=== PATIENT | male | born 1955 | race Caucasian/White ===

== ENCOUNTER 2018-09-30 01:15 | Observation (INO) | payer OTHER, SELFPAY ==
[2018-09-30] VITALS (12 sets, daily range): BP systolic 129–145; BP diastolic 63–84; PULSE 62–88; RESP 15–18; TEMP 36.6–36.8; O2SAT 97–99; BMI 28.0
--- NOTE | 2018-09-30 03:45 | EKG12_ITS ---
Test Reason : ADMIT Blood Pressure : / mmHG Vent. Rate : 075 BPM Atrial Rate : 075 BPM P-R Int : 148 ms QRS Dur : 088 ms QT Int : 386 ms P-R-T Axes : 049 042 035 degrees QTc Int : 431 ms Normal sinus rhythm Normal ECG When compared with ECG of 18-MAR-2014 07:50, No significant change was found Confirmed by HUMZA WHITMORE, KAY ([id number]), editor in chief newspaper SOFIA ARCINIEGA ([id number]) on 10/03/2018 2:13:17 PM Referred By: Confirmed By:KAY CHING MD
--- NOTE | 2018-09-30 03:46 | PCM.HP.STD ---
History of Present Illness Date of Admission: 09/30/18 Chief Complaint: syncope The patient is a 63 year old M with past medical history significant for meningioma. He was admitted as a direct admit from ED on 09/30/2018 with a complaint of syncopal episode. Patient was at a green party in the early hours of this morning and says she started feeling funny. He therefore went outside for some fresh air and went to the bathroom. He was subsequently found on the floor. He does not know how long he was out for but just remembers that he felt weak and lightheaded and remembers falling in his head hitting the wall. thinks he was out for a few minutes as she was wondering where he was and so decided to go to look for him and he was found in the bathroom having be helped to sit up by a bystander. Patient had vomited in the process but had no urinary or fecal incontinence and there were no reported seizure-like movements noted. There was also no tongue biting. He is never had such incidents in the past. Of note, patient donated blood yesterday and sees he donated double his usual portion as he was told. [facility] was [facility] normal limits and CBC showed hemoglobin of 10.7. Patient states his baseline is around 14. CT of the brain done was negative. EKG showed no acute ST changes. Patient requested transfer to [facility] and lives in [place]. He is to be admitted to be managed for syncope. [] Past Medical History Allergies No Known Allergies Allergy (Verified 03/18/14 08:47) Home Medications: Ambulatory Orders Medication Instructions Recorded Loratadine [Claritin] 10 mg PO DAILY 03/18/14 Hydrocodone/Acetaminophen [Vicodin 1 - 2 tablet PO Q6H PRN PRN #20 03/25/14 5-300 mg Tablet] tablet Surgical History: - - rotator cuff surgery Psychiatric History: No pertinent psych hx Lives: Spouse/ Significant Other Smoking Status: Never smoker Alcohol: Occasional - *Family History Paternal History Items: Heart Disease Maternal History Items: No pertinent history Review of Systems Constitutional: Denies: Chills, Fever, Weight Change Eyes: Denies: Blurred vision HEENT: Denies: Head Aches, Sinus Congestion, Sinus Drainage Cardiovascular: Denies: Chest Pain, Palpitations Respiratory: Denies: Cough, Shortness of Breath, Shortness of breath at rest, Sputum production Gastrointestinal: Denies: Abdominal Pain, Nausea, Vomiting Genitourinary: Denies: Dysuria Musculoskeletal: Denies: Joint Pain, Joint Tenderness Skin: Denies: Rash, Wounds Neurological: Denies: Numbness, Tingling, Focal weakness Psychiatric: Denies: Anxiety, Depression, Homicidal Ideations, Suicidal Ideations Hematologic/ Lymphatic: Denies: Easy Bruising, Easy Bleeding VTE Information - Inpt Only VTE Present on Admission: No VTE Pharm Prophylaxis ordered?: Yes - Physical Exam General: Alert, Oriented x3, Cooperative, No apparent distress HEENT: Atraumatic, PERRLA, EOMI, Normocephalic Oral: Moist Mucosa Neck: Supple, No JVD, Negative Carotid Bruits Lungs: Clear to auscultation, Normal air movement, No rhonchi, No wheeze, No rales Cardiovascular: Regular rate, Regular Rhythm, Normal S1, Normal S2, No murmurs Abdomen: Bowel Sounds Present, Soft, Non Tender, Non-Distended, No Hepato-splenomegaly Extremities: No clubbing, No cyanosis, No edema, Capillary Refill Less than 3 Seconds Skin: No rashes, - - small abrasion on the right forehead, due to fall Musculoskeletal: No Tenderness to Palpation of Joints or Extremities Lymphatic: No Cervical, Supraclavicular, or Inguinal Adenopathy Neurological: Cranial nerves II-XII grossly intact, Neuro grossly intact, Motor Exam 5/5 strength throughout Psych/Mental Status: Normal Affect, Appropriate, Alert and oriented to time, place, person, mood and affect Weight: 173 lb 11.588 oz Body Mass Index (BMI) 28.0 Assessment/Plan 63 y/o admitted with a complaint of syncope 1. Syncope, likely vasovagal this was likely induced by significant blood donation which happened yesterday and patient being on his feet all of today CT head was negative- done in [place] EKG done in [place] shows no acute ST changes admit to PCU with telemetry check orthostatics hydrate with IVF 2.Anemia likely due to acute blood loss from blood donation Hb is 10.7; was ~ 14 prior to donation of blood, according to patient will monitor DVT prophylaxis: lovenox Code Visit OBSV E&M: [id number] Initial observation care L2
--- NOTE | 2018-09-30 03:52 | HP.PCM_ITS ---
History of Present Illness Date of Admission: 09/30/18 Chief Complaint: syncope The patient is a 63 year old M with past medical history significant for meningioma. He was admitted as a direct admit from ED on 09/30/2018 with a complaint of syncopal episode. Patient was at a constitution party in the early hours of this morning and says she started feeling funny. He therefore went outside for some fresh air and went to the bathroom. He was subsequently found on the floor. He does not know how long he was out for but just remembers that he felt weak and lightheaded and remembers falling in his head hitting the wall. thinks he was out for a few minutes as she was wondering where he was and so decided to go to look for him and he was found in the bathroom having be helped to sit up by a bystander. Patient had vomited in the process but had no urinary or fecal incontinence and there were no reported seizure-like movements noted. There was also no tongue biting. He is never had such incidents in the past. Of note, patient donated blood yesterday and sees he donated double his usual portion as he was told. [facility] was [facility] normal limits and CBC showed hemoglobin of 10.7. Patient states his baseline is around 14. CT of the brain done was negative. EKG showed no acute ST changes. Patient requested transfer to [facility] and lives in [place]. He is to be admitted to be managed for syncope. [] Past Medical History Allergies No Known Allergies Allergy (Verified 03/18/14 08:47) Home Medications: Ambulatory Orders Medication Instructions Recorded Loratadine [Claritin] 10 mg PO DAILY 03/18/14 Hydrocodone/Acetaminophen [Vicodin 1 - 2 tablet PO Q6H PRN PRN #20 03/25/14 5-300 mg Tablet] tablet Surgical History: - - rotator cuff surgery Psychiatric History: No pertinent psych hx Lives: Spouse/ Significant Other Smoking Status: Never smoker Alcohol: Occasional - *Family History Paternal History Items: Heart Disease Maternal History Items: No pertinent history Review of Systems Constitutional: Denies: Chills, Fever, Weight Change Eyes: Denies: Blurred vision HEENT: Denies: Head Aches, Sinus Congestion, Sinus Drainage Cardiovascular: Denies: Chest Pain, Palpitations Respiratory: Denies: Cough, Shortness of Breath, Shortness of breath at rest, Sputum production Gastrointestinal: Denies: Abdominal Pain, Nausea, Vomiting Genitourinary: Denies: Dysuria Musculoskeletal: Denies: Joint Pain, Joint Tenderness Skin: Denies: Rash, Wounds Neurological: Denies: Numbness, Tingling, Focal weakness Psychiatric: Denies: Anxiety, Depression, Homicidal Ideations, Suicidal Ideations Hematologic/ Lymphatic: Denies: Easy Bruising, Easy Bleeding VTE Information - Inpt Only VTE Present on Admission: No VTE Pharm Prophylaxis ordered?: Yes - Physical Exam General: Alert, Oriented x3, Cooperative, No apparent distress HEENT: Atraumatic, PERRLA, EOMI, Normocephalic Oral: Moist Mucosa Neck: Supple, No JVD, Negative Carotid Bruits Lungs: Clear to auscultation, Normal air movement, No rhonchi, No wheeze, No rales Cardiovascular: Regular rate, Regular Rhythm, Normal S1, Normal S2, No murmurs Abdomen: Bowel Sounds Present, Soft, Non Tender, Non-Distended, No Hepato-splenomegaly Extremities: No clubbing, No cyanosis, No edema, Capillary Refill Less than 3 Seconds Skin: No rashes, - - small abrasion on the right forehead, due to fall Musculoskeletal: No Tenderness to Palpation of Joints or Extremities Lymphatic: No Cervical, Supraclavicular, or Inguinal Adenopathy Neurological: Cranial nerves II-XII grossly intact, Neuro grossly intact, Motor Exam 5/5 strength throughout Psych/Mental Status: Normal Affect, Appropriate, Alert and oriented to time, place, person, mood and affect Weight: 173 lb 11.588 oz Body Mass Index (BMI) 28.0 Assessment/Plan 63 y/o admitted with a complaint of syncope 1. Syncope, likely vasovagal * this was likely induced by significant blood donation which happened yesterday and patient being on his feet all of today * CT head was negative- done in [place] * EKG done in [place] shows no acute ST changes * admit to PCU with telemetry * check orthostatics * hydrate with IVF * 2.Anemia * likely due to acute blood loss from blood donation * Hb is 10.7; was ~ 14 prior to donation of blood, according to patient * will monitor * DVT prophylaxis: lovenox Code Visit OBSV E&M: [id number] Initial observation care L2
[2018-09-30] MEDS: 0.9% Normal Saline 1,000 ML 100 ML IV (04:17)
[2018-09-30 04:28] LABS: Absolute Lymphocyte Count 1.14 X10^3/ul (0.83-4.51); Basophil# 0.01 X10^3/uL; Basophil% 0.1 % (0-1); Eosinophil# 0.04 X10^3/uL; Eosinophils% 0.5 % (0-5); Hematocrit 33.6 % (40-54); Hemoglobin 10.8 g/dl (13.0-16.5); Lymphocyte # 1.14 X10^3/ul (4.0); Lymphocyte % 13.1 % (19-41); Mean Corp Hgb Conc 32.1 g/gl (32-36); Mean Corpuscular Hgb 28.4 pg (27.0-32.0); Mean Corpuscular Volume 88.4 fL (80-94); Mean Platelet Vol. 9.8 fl (6.2-12.0); Monocyte# 0.51 X10^3/uL; Monocyte% 5.9 % (0-10); Neutrophil # 6.98 X10^3/uL (2.7-7.7); Neutrophil % 80.2 % (47-70); Platelet Count 250 K/mm3 (150-450); RBC Distribution Width CV 12.8 % (11.6-14.6); White Blood Count 8.7 K/mm3 (4.4-11.0)
[2018-09-30 04:37] LABS: POSITIVE COUNT NO; POSITIVE DIFFERENTIAL NO; POSITIVE MORPHOLOGY NO
[2018-09-30 04:46] LABS: Anion Gap 7 (5-15); BUN 15 mg/dL (7-18); BUN/Creat Ratio 14.3 RATIO (10-20); Calcium,Total 8.6 mg/dL (8.5-10.1); Chloride 109 mmol/L (98-107); Creatinine, Serum 1.05 mg/dL (0.70-1.30); EST Glomerular Filtration Rate 76 mL/min (>60); Est Glom Filt Rate - Afr Amer 92 mL/min (>60); Estimated Creatinine Clearance 66.67 ml/min; Glucose 108 mg/dL (74-106); Potassium 4.3 mmol/L (3.5-5.1); Sodium Level 143 mmol/L (136-145)
--- NOTE | 2018-09-30 09:46 | ECHOD_ITS ---
Reason For Study: Syncope Procedure This was a 2D Doppler, Color Flow transthoracic echocardiogram. Exam performed portable in patient room. Left Ventricle Normal LV size. Left ventricular systolic function is normal. The estimated ejection fraction is 65 %. Normal diastology for age. No regional wall motion abnormalities noted. Right Ventricle Normal RV size. Normal systolic function. Atria Normal left atrium. Normal right atrium. L to R shunt. Patent foramen ovale. Mitral Valve Normal mitral valve. Tricuspid Valve Normal tricuspid valve. Aortic Valve Trisinus/trileaflet aortic valve. Pulmonic Valve Normal pulmonic valve. Great Vessels Normal aortic root. The pulmonary artery is normal size. Normal inferior vena cava. Pericardium/Pleural No pericardial effusion. Medication Performed a rapid injection of agitated mix of 9 cc saline and 1cc air to assess for atrial septal defect. MMode/2D Measurements & Calculations LVIDd: 5.2 cm IVSd: 1.1 cm LA dimension: 3.4 cm LVIDs: 3.0 cm LVPWd: 0.99 cm RVDd: 3.3 cm FS: 41.4 % LAV(MOD-bp): 56.5 ml LA A4 area: 18.4 cm2 RA A4 area: 14.9 cm2 LAV(MOD-bp) Indexed: 30.0 ml/m2 LAV(MOD-sp2): 59.7 ml LAV(MOD-sp4): 51.4 ml Time Measurements MV dec time: 0.19 sec Doppler Measurements & Calculations MV E max gab: 84.2 cm/sec Lat Peak E' Gab: 14.1 cm/sec Med Peak E' Gab: 12.1 cm/sec MV A max gab: 77.0 cm/sec E/E' lat: 6.0 E/E' med: 6.9 MV E/A: 1.1 MV V2 max: 95.3 cm/sec MV P1/2t max gab: 95.3 cm/sec Ao V2 max: 133.9 cm/sec MV max P.6 mmHg MV P1/2t: 54.5 msec Ao max P.2 mmHg MV V2 mean: 57.6 cm/sec MV dec slope: 512.8 cm/sec2 Ao V2 mean: 92.3 cm/sec MV mean P.5 mmHg Ao mean P.8 mmHg MV V2 VTI: 24.2 cm MVA(P1/2t): 4.0 cm2 Ao V2 VTI: 26.3 cm LV V1 max: 109.8 cm/sec PA V2 max: 157.9 cm/sec LV V1 max P.8 mmHg LV V1 mean P.4 mmHg LV V1 mean: 71.1 cm/sec LV V1 VTI: 23.9 cm Interpretation Summary Normal LV size. Left ventricular systolic function is normal. The estimated ejection fraction is 65 %. Normal diastology for age. L to R shunt Patent foramen ovale. Structurally normal valves. Ordering Physician: DEMARIO Duarte Referring Physician: Anel Ronquillo Performed By: Fito Gill RCS
--- NOTE | 2018-09-30 12:47 | PCM.PROGNOTE ---
Subjective: Patient seen and examined. Denies further dizziness/lightheadedness/syncope. Denies history of prior episodes of syncope. Denies chest pain, shortness of breath, palpitations. - Physical Exam General: Alert, Oriented x3, Cooperative HEENT: Atraumatic, PERRLA, EOMI, Normocephalic Neck: Supple, No JVD, Negative Carotid Bruits Lungs: Clear to auscultation, Normal air movement Cardiovascular: Regular rate, Regular Rhythm, Normal S1, Normal S2, No murmurs Abdomen: Bowel Sounds Present, Soft, Non Tender, Non-Distended Extremities: No clubbing, No cyanosis, No edema, Capillary Refill Less than 3 Seconds Skin: No rashes, No breakdown Musculoskeletal: No Tenderness to Palpation of Joints or Extremities Neurological: Cranial nerves II-XII grossly intact, Neuro grossly intact Psych/Mental Status: Normal Affect, Appropriate Vital Signs Temp Pulse Resp BP Pulse Ox 97.8 F 62 18 129/82 H 98 09/30/18 10:07 09/30/18 11:00 09/30/18 10:07 09/30/18 10:07 09/30/18 10:07 Oxygen Delivery Method Room Air Weight: 173 lb 11.588 oz Body Mass Index (BMI) 28.0 Orthostatic Vital Signs Start: 09/30/18 04:00 Freq: q24h Status: Active Protocol: Activity Type Activity Date Activity User E-Sign Co-Sign Detail Recorded Client Recorded Date Recorded By Document 09/30/18 04:00 [facility] [id number] 09/30/18 04:02 [facility] 09/30/18 04:00 Orthostatic Vitals Standing -Blood Pressure (90/60-120/80) 131/77 H -Extremity Use Right Arm -Pulse Rate (60-100) 88 Sitting -Blood Pressure (90/60-120/80) 131/74 H -Extremity Use Right Arm -Pulse Rate (60-100) 72 Lying -Blood Pressure (90/60-120/80) 131/68 H -Extremity Use Right Arm -Pulse Rate (60-100) 76 Intake and Output for Last 24 Hours 09/28/18 09/29/18 09/30/18 23:59 23:59 23:59 Intake Total 1624 / 1624 Balance 1624 / 1624 Laboratory Tests Past 24 Hrs 09/30/18 09/30/18 04:05 04:05 WBC 8.7 RBC 3.80 L Hgb 10.8 L Hct 33.6 L MCV 88.4 MCH 28.4 MCHC 32.1 RDW 12.8 RDW Differential 41.0 Plt Count 250 MPV 9.8 Immature Gran % (Auto) 0.200 Neut % (Auto) 80.2 H Lymph % (Auto) 13.1 L [place] % (Auto) 5.9 Eos % (Auto) 0.5 Baso % (Auto) 0.1 Absolute Neuts (auto) 7.0 Absolute Lymphs (auto) 1.14 Total Counted Not Reportable Sodium 143 Potassium 4.3 Chloride 109 H Carbon Dioxide 27.0 Anion Gap 7 BUN 15 Creatinine 1.05 Estim Creat Clear Calc 66.67 Est GFR (MDRD) Af Amer 92 Est GFR (MDRD) Non-Af 76 BUN/Creatinine Ratio 14.3 Glucose 108 H Calcium 8.6 Medical Necessity - Tobacco Use Smoking Status: Never smoker Assessment/Plan 1. Syncope-brain CT at outside facility negative. EKG without ST-T changes. Troponin negative. Orthostatic vitals negative. Obtain echocardiogram. Monitor telemetry. 2. Family history of heart disease-patient reports his father had SC/CABG-patient states his most recent stress test was over 3 years ago. Recommend outpatient stress test to be arranged by primary care physician. DVT prophylaxis-Lovenox subcu. This patient was seen by DEMARIO Duarte under the supervision of Dr. Gallardo.
--- NOTE | 2018-09-30 12:54 | PN_ITS ---
Subjective: Patient seen and examined. Denies further dizziness/lightheadedness/syncope. Denies history of prior episodes of syncope. Denies chest pain, shortness of breath, palpitations. - Physical Exam General: Alert, Oriented x3, Cooperative HEENT: Atraumatic, PERRLA, EOMI, Normocephalic Neck: Supple, No JVD, Negative Carotid Bruits Lungs: Clear to auscultation, Normal air movement Cardiovascular: Regular rate, Regular Rhythm, Normal S1, Normal S2, No murmurs Abdomen: Bowel Sounds Present, Soft, Non Tender, Non-Distended Extremities: No clubbing, No cyanosis, No edema, Capillary Refill Less than 3 Seconds Skin: No rashes, No breakdown Musculoskeletal: No Tenderness to Palpation of Joints or Extremities Neurological: Cranial nerves II-XII grossly intact, Neuro grossly intact Psych/Mental Status: Normal Affect, Appropriate Vital Signs Temp Pulse Resp BP Pulse Ox 97.8 F 62 18 129/82 H 98 09/30/18 10:07 09/30/18 11:00 09/30/18 10:07 09/30/18 10:07 09/30/18 10:07 Oxygen Delivery Method Room Air Weight: 173 lb 11.588 oz Body Mass Index (BMI) 28.0 Orthostatic Vital Signs Start: 09/30/18 04:00 Freq: q24h Status: Active Protocol: Activity Type Activity Date Activity User E-Sign Co-Sign Detail Recorded Client Recorded Date Recorded By Document 09/30/18 04:00 [facility] [id number] 09/30/18 04:02 [facility] 09/30/18 04:00 Orthostatic Vitals Standing -Blood Pressure (90/60-120/80) 131/77 H -Extremity Use Right Arm -Pulse Rate (60-100) 88 Sitting -Blood Pressure (90/60-120/80) 131/74 H -Extremity Use Right Arm -Pulse Rate (60-100) 72 Lying -Blood Pressure (90/60-120/80) 131/68 H -Extremity Use Right Arm -Pulse Rate (60-100) 76 Intake and Output for Last 24 Hours 09/28/18 09/29/18 09/30/18 23:59 23:59 23:59 Intake Total 1624 / 1624 Balance 1624 / 1624 Laboratory Tests Past 24 Hrs 09/30/18 09/30/18 04:05 04:05 WBC 8.7 RBC 3.80 L Hgb 10.8 L Hct 33.6 L MCV 88.4 MCH 28.4 MCHC 32.1 RDW 12.8 RDW Differential 41.0 Plt Count 250 MPV 9.8 Immature Gran % (Auto) 0.200 Neut % (Auto) 80.2 H Lymph % (Auto) 13.1 L [place] % (Auto) 5.9 Eos % (Auto) 0.5 Baso % (Auto) 0.1 Absolute Neuts (auto) 7.0 Absolute Lymphs (auto) 1.14 Total Counted Not Reportable Sodium 143 Potassium 4.3 Chloride 109 H Carbon Dioxide 27.0 Anion Gap 7 BUN 15 Creatinine 1.05 Estim Creat Clear Calc 66.67 Est GFR (MDRD) Af Amer 92 Est GFR (MDRD) Non-Af 76 BUN/Creatinine Ratio 14.3 Glucose 108 H Calcium 8.6 Medical Necessity - Tobacco Use Smoking Status: Never smoker Assessment/Plan 1. Syncope-brain CT at outside facility negative. EKG without ST-T changes. Troponin negative. Orthostatic vitals negative. Obtain echocardiogram. Monitor telemetry. 2. Family history of heart disease-patient reports his father had CT/CABG- patient states his most recent stress test was over 3 years ago. Recommend outpatient stress test to be arranged by primary care physician. DVT prophylaxis-Lovenox subcu. This patient was seen by DEMARIO Duarte under the supervision of Dr. Gallardo.
[2018-10-01] VITALS (7 sets, daily range): BP systolic 116–134; BP diastolic 78–87; PULSE 57–83; RESP 17–18; TEMP 36.4–36.6; O2SAT 96–97
--- NOTE | 2018-10-01 11:27 | DCINST_ITS ---
You will use the following diet at home:: No restrictions Discharge Activity: Return to Normal Activity Call your doctor if you observe: Shortness of breath, Dizziness, Fainting spells, Chest pain Allergies/Adverse Reactions: Allergies No Known Allergies Allergy (Verified 03/18/14 08:47) Medications to take at Discharge Loratadine [Claritin] 10 mg PO DAILY 03/18/14 Test Results: Test results from this visit will be discussed in further detail at your follow- up appointment, if applicable. Please Follow Up With: Primary Care Provider When: 1 Week Proposed Discharge Date: 10/01/18
--- NOTE | 2018-10-01 12:15 | PHA.DC.MR ---
Pharmacy Service has performed discharge medication reconciliation for this patient. The patient's discharge medication list was reviewed for discrepancies and discrepancies were resolved. Home Medications Loratadine [Claritin] 10 mg PO DAILY 03/18/14
--- NOTE | 2018-10-01 14:30 | DS.PCM_ITS ---
<Samantha Tucker - Last Filed: 10/01/18 14:30> Discharge Date and Diagnosis - Problem List Patient Problems: Active and Suspected Problems Syncope (Acute) Date of Admission: 09/30/18 Date of Discharge: 10/01/18 - Primary Discharge Diagnosis 1. Syncope Hospital Course and Treatment Operations: None Procedures: 2-D Echocardiogram Summary of Care Provided: The patient is a 63 year old M due to syncope. He has a past medical history of meningioma. Patient donated double his usual blood donation day prior to syncopal event. He was noted to twice daily [employer] function and had 3 alcoholic beverages night of syncopal event. Brain CT at outside facility negative. EKG without ST-T changes. Troponin negative. Orthostatic vitals negative. Echocardiogram showed an EF of 65%, +PFO. Suspect syncope due to prior mentioned events. Baseline hemoglobin 13.8. Hemoglobin on admission 10.8. Patient denies further dizziness/syncope. Patient reports a significant family history of CAD with father having CABG in 50s. Recommended to patient discussion with PCP regarding outpatient routine stress test. General: Alert, Oriented x3, Cooperative HEENT: Atraumatic, PERRLA, EOMI, Normocephalic Neck: Supple, No JVD, Negative Carotid Bruits Lungs: Clear to auscultation, Normal air movement Cardiovascular: Regular rate, Regular Rhythm, Normal S1, Normal S2, No murmurs Abdomen: Bowel Sounds Present, Soft, Non Tender, Non-Distended Extremities: No clubbing, No cyanosis, No edema, Capillary Refill Less than 3 Seconds Skin: No rashes, No breakdown Musculoskeletal: No Tenderness to Palpation of Joints or Extremities Neurological: Cranial nerves II-XII grossly intact, Neuro grossly intact Psych/Mental Status: Normal Affect, Appropriate Patient seen and examined prior to discharge. Physical assessment as noted above. Patient is stable for discharge with follow up recommendations as noted above. This patient was seen by DEMARIO Duarte under the supervision of Dr. Humphrey. Patient Problems: Active and Suspected Problems Syncope (Acute) - Physical Exam Vital Signs Temp Pulse Resp BP Pulse Ox 97.6 F L 69 17 131/85 H 97 10/01/18 09:08 10/01/18 11:06 10/01/18 09:08 10/01/18 09:08 10/01/18 09:08 Oxygen Delivery Method Room Air Weight: 173 lb 11.588 oz Body Mass Index (BMI) 28.0 Orthostatic Vital Signs Start: 09/30/18 04:00 Freq: q24h Status: Active Protocol: Activity Type Activity Date Activity User E-Sign Co-Sign Detail Recorded Client Recorded Date Recorded By Document 10/01/18 06:17 CAD [id number] 10/01/18 06:21 CAD 10/01/18 06:17 Orthostatic Vitals Standing -Blood Pressure (90/60-120/80) 116/82 H -Extremity Use Left Arm -Pulse Rate (60-100) 83 Sitting -Blood Pressure (90/60-120/80) 134/78 H -Extremity Use Left Arm -Pulse Rate (60-100) 68 Lying -Blood Pressure (90/60-120/80) 126/80 H -Extremity Use Left Arm -Pulse Rate (60-100) 62 Intake and Output for Last 24 Hours 09/29/18 09/30/18 10/01/18 23:59 23:59 23:59 Intake Total 2344 / 2344 1380 / 1380 Balance 2344 / 2344 1380 / 1380 Discharge Diet: No Restrictions Discharge Activity: Return to Normal Activity Call your doctor if you observe: Shortness of breath, Dizziness, Fainting spells, Chest pain Home Medications: Medications to take at Discharge Loratadine [Claritin] 10 mg PO DAILY 03/18/14 Primary Care Physician: Anel Ronquillo MD [Primary Care Provider] - Within 2 Weeks Please Follow Up With: Primary Care Provider When: 1 Week Disposition: Home Minutes spent on discharge:: 35 Patient Condition:: Stable Medical Necessity - Tobacco Use Smoking Status: Never smoker Meaningful Use Info Meaningful Use Diagnoses (Choose all that apply): None applicable <Pawan Humphrey - Last Filed: 10/01/18 17:14> Hospital Course and Treatment Operations: None Procedures: 2-D Echocardiogram Summary of Care Provided: Patient seen and examined independently. Data reviewed. I agree with the above note by the nurse practitioner. The patient is a 63 year old M presents with a syncopal episode. On 28 September, patient gave double blood during a blood drive. On Monday, the second, he was at function and had 3 drinks. Patient was feeling woozy but then suddenly passed out. Patient was sent to the emergency room and assessed. Patient's workup in the hospital was unremarkable. Is my feeling that the patient had a syncopal episode due to vasovagal syncope. The etiologies probably stem from the fact that patient donated blood. He was told that his hemoglobin was 14 prior to donating blood and here it was 10.8. Also the fact that he had a few alcoholic drinks likely contributed as well. I discussed with the patient and his about this and recommend drinking plenty fluid after blood donation and to drink in moderation blood donation. [] - Physical Exam General: Alert, No apparent distress HEENT: Atraumatic, Normocephalic Psych/Mental Status: Normal Affect, Appropriate Vital Signs Temp Pulse Resp BP Pulse Ox 36.6 C 70 18 128/78 H 97 10/01/18 14:35 10/01/18 14:35 10/01/18 14:35 10/01/18 14:35 10/01/18 14:35 Oxygen Delivery Method Room Air Weight: 78.8 kg Body Mass Index (BMI) 28.0 Orthostatic Vital Signs Start: 09/30/18 04:00 Freq: q24h Status: Active Protocol: Activity Type Activity Date Activity User E-Sign Co-Sign Detail Recorded Client Recorded Date Recorded By Document 10/01/18 06:17 CAD [id number] 10/01/18 06:21 CAD 10/01/18 06:17 Orthostatic Vitals Standing -Blood Pressure (90/60-120/80) 116/82 H -Extremity Use Left Arm -Pulse Rate (60-100) 83 Sitting -Blood Pressure (90/60-120/80) 134/78 H -Extremity Use Left Arm -Pulse Rate (60-100) 68 Lying -Blood Pressure (90/60-120/80) 126/80 H -Extremity Use Left Arm -Pulse Rate (60-100) 62 Intake and Output for Last 24 Hours 09/29/18 09/30/18 10/01/18 23:59 23:59 23:59 Intake Total 2344 / 2344 1380 / 1380 Balance 2344 / 2344 1380 / 1380 Discharge Diet: No Restrictions Discharge Activity: Return to Normal Activity Call your doctor if you observe: Shortness of breath, Dizziness, Fainting spells, Chest pain Medical Necessity - Tobacco Use Smoking Status: Never smoker Meaningful Use Info Meaningful Use Diagnoses (Choose all that apply): None applicable Code Visit OBSV E&M: 09985 Observation care discharge
== END 2018-10-01 11:26 | disposition home or self-care (01) ==
PROVIDERS: Admitting Provider Student in an Organized Health Care Education/Training Program
DX: R55 Syncope and collapse (principal); D64.9 Anemia, unspecified; Z82.49 Family history of ischemic heart disease and other diseases of the circulatory system
CPT/HCPCS: 36415; 80048; 85025; 93005; 93306; 96360; 96361; 99218; J7030; J7040; A4216; G0378

== ENCOUNTER → 2020-08-11 09:37 | Outpatient (CLI) | payer OTHER, SELFPAY ==
[2018-09-30 03:08] VITALS: BMI 28.0
[2020-08-11 12:12] LABS: Absolute Lymphocyte Count 1.07 X10^3/uL (0.83-4.51); Absolute Neutrophil Count 9.8 X10^3/uL (2.0-7.7); Basophil# 0.03 X10^3/uL; Basophil% 0.3 % (0-1); Eosinophil# 0.07 X10^3/uL; Eosinophils% 0.6 % (0-5); Hematocrit 45.6 % (40-54); Hemoglobin 14.5 g/dL (13.0-16.5); Lymphocyte # 1.07 X10^3/ul (4.0); Lymphocyte % 9.3 % (19-41); Mean Corp Hgb Conc 31.8 g/dL (32-36); Mean Corpuscular Hgb 27.9 pg (27.0-32.0); Mean Corpuscular Volume 87.7 fL (80-94); Mean Platelet Vol. 10.7 fl (6.2-12.0); Monocyte% 4.3 % (0-10); NRBC Flagged by Analyzer 0 % (0-5); Neutrophil # 9.81 X10^3/uL (2.7-7.7); Neutrophil % 84.9 % (47-70); Platelet Count 268 K/mm3 (150-450); RBC Distribution Width CV 13.1 % (11.6-14.6); RBC Distribution Width SD 42.3 fl (35.1-43.9); White Blood Count 11.6 K/mm3 (4.4-11.0)
[2020-08-11 12:53] LABS: AST(SGOT) 11 U/L (15-37); Alanine Aminotransfer ALT/SGPT 30 U/L (16-61); Albumin, Serum 3.7 g/dL (3.2-5.0); Alkaline Phosphatase 89 U/L (45-117); Anion Gap 6 (5-15); BUN 16 mg/dL (7-18); BUN/Creat Ratio 15.7 RATIO (10-20); Calcium,Total 9.2 mg/dL (8.5-10.1); Chloride 108 mmol/L (98-107); Creatinine, Serum 1.02 mg/dL (0.70-1.30); EST Glomerular Filtration Rate 78 mL/min (>60); Est Glom Filt Rate - Afr Amer 95 mL/min (>60); Globulin 3.6 g/dL (2.2-4.2); Glucose 84 mg/dL (74-106); Potassium 3.8 mmol/L (3.5-5.1); Protein, Total 7.3 g/dL (6.4-8.2); Rheumatoid Factor < 10.0 IU/mL (<15); Sodium Level 141 mmol/L (136-145)
[2020-08-11 13:16] LABS: Hepatitis B Surface Antibody Non-Reactive; Hepatitis B Surface Antigen Non-Reactive (Nonreactive); Hepatitis C Antibody Non-Reactive (Nonreactive)
[2020-08-13 04:17] LABS: CCP IgG Antibodies 6 units (0-19); Hepatitis B Core AB IgM Negative (Negative)
== END ==
PROVIDERS: Referring Provider Internal Medicine Rheumatology; Visit Provider Internal Medicine Rheumatology
DX: M06.4 Inflammatory polyarthropathy (principal); J30.9 Allergic rhinitis, unspecified
CPT/HCPCS: 36415; 80053; 85025; 86200; 86431; 86705; 86706; 86803; 87340

== ENCOUNTER → 2020-11-10 07:41 | Outpatient (CLI) | payer BC, SELFPAY ==
[2018-09-30 03:08] VITALS: BMI 28.0
[2020-11-10 10:13] LABS: Absolute Neutrophil Count 4.6 X10^3/uL (2.0-7.7); Basophil# 0.03 X10^3/uL; Basophil% 0.4 % (0-1); Eosinophils% 2.9 % (0-5); Hematocrit 45.4 % (40-54); Hemoglobin 14.4 g/dL (13.0-16.5); Lymphocyte % 22.8 % (19-41); Mean Corp Hgb Conc 31.7 g/dL (32-36); Mean Corpuscular Hgb 29.7 pg (27.0-32.0); Mean Corpuscular Volume 93.6 fL (80-94); Mean Platelet Vol. 10.7 fl (6.2-12.0); Monocyte# 0.55 X10^3/uL; Monocyte% 7.8 % (0-10); NRBC Flagged by Analyzer 0 % (0-5); Neutrophil % 65.7 % (47-70); Platelet Count 254 K/mm3 (150-450); Red Blood Count 4.85 M/mm3 (4.6-6.2)
[2020-11-10 10:38] LABS: ALB/GLOB Ratio 1.1 RATIO (0.9-2.4); AST(SGOT) 27 U/L (15-37); Alanine Aminotransfer ALT/SGPT 55 U/L (16-61); Albumin, Serum 3.7 g/dL (3.2-5.0); Alkaline Phosphatase 90 U/L (45-117); Anion Gap 5 (5-15); BUN 17 mg/dL (7-18); Chloride 108 mmol/L (98-107); Creatinine, Serum 1.21 mg/dL (0.70-1.30); EST Glomerular Filtration Rate 64 mL/min (>60); Est Glom Filt Rate - Afr Amer 78 mL/min (>60); Globulin 3.4 g/dL (2.2-4.2); Glucose 87 mg/dL (74-106); Potassium 3.7 mmol/L (3.5-5.1); Protein, Total 7.1 g/dL (6.4-8.2); Sodium Level 142 mmol/L (136-145)
== END ==
PROVIDERS: PCP Family Medicine; Referring Provider Internal Medicine Rheumatology; Visit Provider Internal Medicine Rheumatology
DX: M06.4 Inflammatory polyarthropathy (principal); J30.9 Allergic rhinitis, unspecified; Z79.899 Other long term (current) drug therapy
CPT/HCPCS: 36415; 80053; 85025

== ENCOUNTER → 2021-01-08 13:08 | Outpatient (CLI) | payer BC, SELFPAY ==
[2018-09-30 03:08] VITALS: BMI 28.0
[2021-01-08 15:11] LABS: Absolute Lymphocyte Count 0.84 X10^3/uL (0.83-4.51); Absolute Neutrophil Count 9.1 X10^3/uL (2.0-7.7); Basophil# 0.02 X10^3/uL; Basophil% 0.2 % (0-1); Eosinophil# 0.02 X10^3/uL; Eosinophils% 0.2 % (0-5); Hematocrit 44.6 % (40-54); Hemoglobin 14.4 g/dL (13.0-16.5); Lymphocyte # 0.84 X10^3/ul (0.83-4.51); Lymphocyte % 8.2 % (19-41); Mean Corp Hgb Conc 32.3 g/dL (32-36); Mean Corpuscular Hgb 29.5 pg (27.0-32.0); Mean Corpuscular Volume 91.4 fL (80-94); Mean Platelet Vol. 10.7 fl (6.2-12.0); NRBC Flagged by Analyzer 0 % (0-5); Neutrophil # 9.07 X10^3/uL (2.7-7.7); Platelet Count 322 K/mm3 (150-450); RBC Distribution Width CV 12.3 % (11.6-14.6); RBC Distribution Width SD 40.9 fl (35.1-43.9); Red Blood Count 4.88 M/mm3 (4.6-6.2); White Blood Count 10.2 K/mm3 (4.4-11.0)
[2021-01-08 15:26] LABS: ALB/GLOB Ratio 1.2 RATIO (0.9-2.4); AST(SGOT) 18 U/L (15-37); Alanine Aminotransfer ALT/SGPT 37 U/L (16-61); Albumin, Serum 3.9 g/dL (3.2-5.0); Alkaline Phosphatase 85 U/L (45-117); Anion Gap 7 (5-15); BUN 18 mg/dL (7-18); BUN/Creat Ratio 15.1 RATIO (10-20); Calcium,Total 9.3 mg/dL (8.5-10.1); Chloride 106 mmol/L (98-107); Creatinine, Serum 1.19 mg/dL (0.70-1.30); EST Glomerular Filtration Rate 66 mL/min (>60); Est Glom Filt Rate - Afr Amer 79 mL/min (>60); Globulin 3.2 g/dL (2.2-4.2); Glucose 116 mg/dL (74-106); Potassium 4.1 mmol/L (3.5-5.1); Protein, Total 7.1 g/dL (6.4-8.2); Sodium Level 140 mmol/L (136-145)
== END ==
PROVIDERS: PCP Family Medicine; Referring Provider Internal Medicine Rheumatology; Visit Provider Internal Medicine Rheumatology
DX: M06.4 Inflammatory polyarthropathy (principal); J30.9 Allergic rhinitis, unspecified; Z79.899 Other long term (current) drug therapy
CPT/HCPCS: 36415; 80053; 85025

== ENCOUNTER → 2021-03-05 15:25 | Outpatient (CLI) | payer BC, SELFPAY ==
[2018-09-30 03:08] VITALS: BMI 28.0
[2021-03-05 17:35] LABS: Absolute Lymphocyte Count 1.59 X10^3/uL (0.83-4.51); Absolute Neutrophil Count 6.3 X10^3/uL (2.0-7.7); Basophil# 0.02 X10^3/uL; Basophil% 0.2 % (0-1); Eosinophil# 0.09 X10^3/uL; Hematocrit 42.4 % (40-54); Hemoglobin 13.9 g/dL (13.0-16.5); Lymphocyte # 1.59 X10^3/ul (0.83-4.51); Lymphocyte % 18.4 % (19-41); Mean Corp Hgb Conc 32.8 g/dL (32-36); Mean Corpuscular Hgb 30.3 pg (27.0-32.0); Mean Corpuscular Volume 92.6 fL (80-94); Mean Platelet Vol. 10.4 fl (6.2-12.0); Monocyte# 0.61 X10^3/uL; Monocyte% 7.1 % (0-10); NRBC Flagged by Analyzer 0 % (0-5); Neutrophil # 6.29 X10^3/uL (2.7-7.7); Neutrophil % 73.1 % (47-70); Platelet Count 320 K/mm3 (150-450); RBC Distribution Width CV 12.6 % (11.6-14.6); Red Blood Count 4.58 M/mm3 (4.6-6.2); White Blood Count 8.6 K/mm3 (4.4-11.0)
[2021-03-05 17:56] LABS: ALB/GLOB Ratio 1.2 RATIO (0.9-2.4); AST(SGOT) 17 U/L (15-37); Alanine Aminotransfer ALT/SGPT 38 U/L (16-61); Albumin, Serum 3.9 g/dL (3.2-5.0); Alkaline Phosphatase 94 U/L (45-117); Anion Gap 6 (5-15); BUN 17 mg/dL (7-18); BUN/Creat Ratio 15.9 RATIO (10-20); Calcium,Total 8.9 mg/dL (8.5-10.1); Chloride 107 mmol/L (98-107); Creatinine, Serum 1.07 mg/dL (0.70-1.30); EST Glomerular Filtration Rate 74 mL/min (>60); Est Glom Filt Rate - Afr Amer 90 mL/min (>60); Globulin 3.3 g/dL (2.2-4.2); Glucose 81 mg/dL (74-106); Potassium 3.8 mmol/L (3.5-5.1); Protein, Total 7.2 g/dL (6.4-8.2); Sodium Level 141 mmol/L (136-145)
== END ==
PROVIDERS: PCP Family Medicine; Referring Provider Internal Medicine Rheumatology; Visit Provider Internal Medicine Rheumatology
DX: M06.4 Inflammatory polyarthropathy (principal); J30.9 Allergic rhinitis, unspecified; Z79.899 Other long term (current) drug therapy
CPT/HCPCS: 36415; 80053; 85025

== ENCOUNTER → 2021-06-22 16:21 | Outpatient (CLI) | payer BC, SELFPAY ==
[2021-06-22 17:34] LABS: Absolute Lymphocyte Count 1.03 X10^3/uL (0.83-4.51); Absolute Neutrophil Count 3.6 X10^3/uL (2.0-7.7); Basophil# 0.04 X10^3/uL; Basophil% 0.8 % (0-1); Eosinophil# 0.08 X10^3/uL; Eosinophils% 1.5 % (0-5); Hematocrit 43.2 % (40-54); Hemoglobin 14.2 g/dL (13.0-16.5); Lymphocyte # 1.03 X10^3/ul (0.83-4.51); Lymphocyte % 19.4 % (19-41); Mean Corp Hgb Conc 32.9 g/dL (32-36); Mean Corpuscular Hgb 30.3 pg (27.0-32.0); Mean Corpuscular Volume 92.1 fL (80-94); Monocyte# 0.51 X10^3/uL; Monocyte% 9.6 % (0-10); NRBC Flagged by Analyzer 0 % (0-5); Neutrophil # 3.63 X10^3/uL (2.7-7.7); Neutrophil % 68.5 % (47-70); Platelet Count 256 K/mm3 (150-450); RBC Distribution Width CV 12.4 % (11.6-14.6); RBC Distribution Width SD 41.7 fl (35.1-43.9); Red Blood Count 4.69 M/mm3 (4.6-6.2); White Blood Count 5.3 K/mm3 (4.4-11.0)
[2021-06-22 18:14] LABS: AST(SGOT) 21 U/L (15-37); Alanine Aminotransfer ALT/SGPT 41 U/L (16-61); Creatinine, Serum 1.02 mg/dL (0.70-1.30); EST Glomerular Filtration Rate 78 mL/min (>60); Est Glom Filt Rate - Afr Amer 95 mL/min (>60)
[2021-06-23 12:18] LABS: Hepatitis B Surface Antibody Non-Reactive
[2021-07-01 16:05] LABS: HLA B27 Negative (.)
== END ==
PROVIDERS: PCP Family Medicine
DX: M13.89 Other specified arthritis, multiple sites (principal)
CPT/HCPCS: 36415; 81374; 82565; 84450; 84460; 85025; 86706